=== PATIENT | female | born 1990 | race Caucasian/White ===

== ENCOUNTER 2017-04-14 20:17 | Emergency (ER) | payer OTHER ==
[~2017-04-14] VITALS: Ht 167.6 cm; Wt 90.7 kg
--- NOTE | 2017-04-14 21:22 | ER.PDOC ---
General Chief Complaint: Female Urogenital Problems Stated Complaint: FEMALE ,ABD PAIN Time seen by MD: 21:20 Source: patient Exam Limitations: no limitations History of Present Illness Initial Comments vaginal bleeding on and off for 3 weeks irregular Timing/Duration: getting worse Radiation: LLQ Exacerbated by: supine Allergies: Coded Allergies: No Known Allergies (Unverified , 04/14/17) Vital Signs First Vital Signs Date Time Temp Pulse Resp B/P (MAP) Pulse Ox O2 Delivery O2 Flow Rate FiO2 04/14/17 20:33 98.7 77 18 99 04/14/17 20:38 153/78 (103) Last Vital Signs Date Time Temp Pulse Resp B/P (MAP) Pulse Ox O2 Delivery O2 Flow Rate FiO2 04/14/17 20:38 98.7 77 18 153/78 (103) 99 Past Medical History Medical History: no pertinent history Surgical History: LMP (females 10-50): 1 month Family History Significant Family History: no pertinent family hx Social History Smoking: less than 1 pack/day Alcohol Use: none Drug Use: none Constitutional: denies fever EENTM: denies eye pain Respiratory: denies cough Cardiovascular: denies chest pain Gastrointestinal: abdominal pain Musculoskeletal: denies back pain All Other Systems: Reviewed and Negative Physical Exam General Appearance: Anxious HEENT: PERRL/EOMI, Normal ENT Inspection, TMs Normal, Pharynx Normal Neck: Non-Tender, Full Range of Motion, Supple, Normal Inspection Respiratory: chest non-tender, lungs clear, normal breath sounds, no respiratory distress, no accessory muscle use Cardiovascular: Normal Peripheral Pulses, Regular Rate, Rhythm, No Edema, No Gallop, No JVD, No Murmur Gastrointestinal: Non Tender Back: Normal Inspection, No CVA Tenderness, No Vertebral Tenderness Extremities: Normal Range of Motion, Non-Tender, Normal Inspection, No Pedal Edema, No Calf Tenderness, Normal Capillary Refill, Pelvis Stable 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
[2017-04-14 21:26] LABS: BILIRUBIN,URINE NEGATIVE (NEGATIVE); UROBILINOGEN,URINE NORMAL (NEGATIVE)
[2017-04-14 21:41] LABS: APPEARANCE,URINE BLOODY (CLEAR); UA COLOR BLOODY (YELLOW)
--- NOTE | 2017-04-14 22:18 | NUR ---
OK TO DISCHARGE HOME DX UTI PER DR MENON
--- NOTE | 2017-04-14 22:24 | NUR ---
DISCHARGE DISCHARGE INSTRUCTIONS AND PRESCRIPTION MEDICATION DISCUSSED. PT VERBALIZED UNDERSTANDING. ENCOUARGED TO RETURN FOR ANY CONCERNS.
== END 2017-04-14 22:24 | disposition home or self-care (01) ==
LOC: ER 20:17
DX: N93.9 Abnormal uterine and vaginal bleeding, unspecified (principal); N39.0 Urinary tract infection, site not specified; F17.200 Nicotine dependence, unspecified, uncomplicated
CPT/HCPCS: 81000; 81025; 87077; 87086; 87186; 99284